=== PATIENT | male | born 1945 | race Caucasian/White ===

== ENCOUNTER 2017-02-17 13:50 | Outpatient (CLI) | payer MEDICARE ==
--- NOTE | 2017-02-17 16:21 | DIAGNOSTIC IMAGING REPORT ---
PROCEDURE: US VENOUS - BILATERAL EXT INDICATION: LEG PAIN, PRE DIABETES, HTN, HYPERLIPIDEMIA TECHNIQUE: Duplex sonography of the deep venous system in both lower extremities was performed. Compression and augmentation techniques were used. COMPARISON: None. FINDINGS: Each interrogated segment of deep vein from the common femoral vein into the calf veins demonstrates normal compressibility, augmentation and/or color Doppler flow without filling defect. No evidence of significant soft-tissue edema, soft-tissue mass or cyst. FINDINGS: Each interrogated segment of the deep vein demonstrates normal compressibility, augmentation, and normal color Doppler flow without filling defect. No thrombus in either greater saphenous or short saphenous vein. There is no venous reflux in the right greater saphenous vein. The vein measures 6.7 mm in maximal diameter in the proximal segment. There is no venous reflux in the left greater saphenous vein. The vein measures 5.3 mm in maximal diameter in the proximal segment. There is no venous reflux in the right or left deep system. The popliteal veins are and dilated bilaterally at the a valve site with the right measuring 16 mm and the left measuring 18 mm. No venous varicosities are seen. IMPRESSION: 1. No deep venous thrombosis in either lower extremity. 2. No venous insufficiency in the lower extremities.
--- NOTE | 2017-02-17 17:44 | DIAGNOSTIC IMAGING REPORT ---
PROCEDURE: US ART LOWER EXT WITH [id number]-B/L INDICATION: Bilateral leg pain. Pre diabetes. Hyperlipidemia. 40 years smoking history. TECHNIQUE: Preexercise ABIs were performed. The patient was exercised (toe-ups) and postexercise ABIs were repeated followed by color Doppler duplex imaging of the lower extremities. COMPARISON: None. FINDINGS: RIGHT LOWER EXTREMITY: ABIs: Pre exercise ABIs are moderately to severely diminished (posterior tibial 0.8, dorsalis pedis 0.0). Following exercise, there is moderate worsening in ABIs (posterior tibial 0.5, dorsalis pedis 0.0) VESSELS: Severe multilevel calcified atheromatous changes. RIGHT LOWER EXTREMITY PEAK SYSTOLIC VELOCITIES: External iliac: Triphasic 119 cm/second. Common femoral artery: Triphasic 151 cm/second. Profunda femoral artery: Monophasic 166 cm/second. Proximal superficial femoral artery: Monophasic 214 cm/second. Mid superficial femoral artery: Monophasic 355 cm/second. Distal superficial femoral artery: Monophasic 209 cm/second. Popliteal artery: Monophasic 46 cm/second. Proximal posterior tibial artery: Monophasic 64 cm/second. Proximal anterior tibial artery: Monophasic 12 cm/second. Peroneal artery: N/A cm/second. Distal posterior tibial artery: Monophasic 57 cm/second. Dorsalis pedis artery: Monophasic 7 cm/second. LEFT LOWER EXTREMITY: ABIs: Pre exercise ABIs are mildly diminished (posterior tibial 0.9, dorsalis pedis 0.8). Following exercise, ABIs are moderately to severely diminished (posterior tibial 0.4, dorsalis pedis 0.4). VESSELS: Severe multilevel calcified atheromatous changes. LEFT LOWER EXTREMITY PEAK SYSTOLIC VELOCITIES: External iliac: Biphasic 113 cm/second. Common femoral artery: Biphasic 80 cm/second. Profunda femoral artery: Monophasic 85 cm/second. Proximal superficial femoral artery: Monophasic 83 cm/second. Mid superficial femoral artery: Monophasic 388 cm/second. Distal superficial femoral artery: Monophasic 80 cm/second. Popliteal artery: Monophasic 70 cm/second. Proximal posterior tibial artery: Monophasic 49 cm/second. Proximal anterior tibial artery: Monophasic 11 cm/second. Peroneal artery: N/A cm/second. Distal posterior tibial artery: Monophasic 34 cm/second. Dorsalis pedis artery: Monophasic 11 cm/second. IMPRESSION: 1. Severe multilevel calcified atheromatous changes of the bilateral lower extremity arterial vascular system. 2. 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 3. Mild resting and severe postexercise arterial insufficiency of the left lower extremity secondary to severe multilevel atheromatous changes with high- grade 50 - 99% stenosis of the mid left superficial femoral artery, and trifurcation disease.
== END 2017-02-17 23:00 | disposition home or self-care (01) ==
LOC: US SRH 13:50
DX: M79.604 Pain in right leg (principal); M79.605 Pain in left leg; I10 Essential (primary) hypertension